=== PATIENT | male | born 1960 | race Caucasian/White ===

== ENCOUNTER → 2019-11-11 14:10 | Outpatient (CLI) | payer OTHER, SELFPAY ==
--- NOTE | ~2019-11-11 | XR_ITS ---
EXAMINATION: XR_RIBSBI_CR DATE: 11/11/2019 14:38 INDICATION: Bilateral rib pain. TECHNIQUE: 3 views of the right ribs and 3 views of the left ribs were obtained. COMPARISON: None. FINDINGS: There is mild scarring at the lung apices. No pleural effusion or pneumothorax. The heart s ize is normal. There are multiple old healed anterior left rib fractures. IMPRESSION: 1. No acute rib fracture. Reviewed, dictated and finalized at location A. IMPRESSION: 1. No acute rib fracture.
== END ==
PROVIDERS: PCP Physician Assistant; Visit Provider Family Medicine
DX: R07.81 Pleurodynia (principal)
CPT/HCPCS: 71110

== ENCOUNTER 2023-10-09 10:08 | Emergency (ER) | payer BC, SELFPAY ==
--- NOTE | ~2023-10-09 | US_ITS ---
EXAMINATION: US venous doppler LE RT DATE: 10/09/2023 11:06 INDICATION: Right lower limb pain and swelling. TECHNIQUE: Grayscale ultrasound images without and with compression and Doppler ultrasound images of the right lower extremity veins were obtained. COMPARISON: None. FINDINGS: The visualized portions of right common femoral vein, profunda (deep) femoral vein, femoral vein, pop liteal vein, peroneal veins, posterior tibial veins, and greater saphenous vein outflow are patent. IMPRESSION: 1. No deep venous thrombosis. Reviewed, dictated and finalized at location A.
--- NOTE | ~2023-10-09 | XR_ITS ---
EXAMINATION: XR femur RT min 2V DATE: 10/09/2023 10:54 INDICATION: Broken hardware. Edema. TECHNIQUE: 2 views of right femur on 4 radiographs were obtained. COMPARISON: None. FINDINGS: There is an old healed fracture of diaphysis of right femur with internal fixation with ivan te and screws. At least four of the screws are fractured. There is mild right hip osteoarthritis and moderate right knee osteoarthritis. No knee joint effusion. There is a loose body in the knee joint. IMPRESSION: 1. Old healed fracture of right femoral diaphysis with internal fixation. 2. Polyarticular osteoarthritis. Reviewed, dictated and finalized at location A.
[2023-10-09 10:09] VITALS: BP 149/86; PULSE 83; RESP 18; TEMP 36.8; O2SAT 98
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
[2023-10-09 10:36] VITALS: BP 122/68; PULSE 69; RESP 15; O2SAT 95
[2023-10-09 10:43] LABS: Basophils Absolute Auto 0.1 K/mm3 (0.0-0.1); Basophils Percent Auto 1.1 % (0.2-1.2); Eosinophils Absolute Auto 0.2 K/mm3 (0-0.3); Hematocrit 46.1 % (42.0-52.0); Hemoglobin 15.5 g/dL (14.0-18.0); Immature Granulocyte Absolute 0.02 K/mm3 (0.00-0.031); Immature Granulocyte Percent A 0.2 % (0-0.5); Lymphocytes Absolute Auto 2.28 K/mm3 (0.9-3.2); Lymphocytes Percent Auto 28.4 % (18.3-44.2); Mean Corpuscular HGB Conc 33.6 g/dl (32-36); Mean Corpuscular Hemoglobin 29.1 pg (26-34); Mean Corpuscular Volume 86.7 fl (80-100); Mean Platelet Volume 10.2 fl (7.4-10.4); Monocytes Absolute Auto 0.6 K/mm3 (0.1-0.6); Monocytes Percent Auto 7.1 % (2.6-8.5); Neutrophils Absolute Auto 4.8 K/mm3 (1.3-6.7); Neutrophils Percent Auto 60.2 % (45.5-73.1); Platelet Count Result 238 k/mm3 (150-375); Red Blood Count 5.32 M/mm3 (4.6-6.20); Red Cell Distribution Width 15.2 % (11.5-14.5)
[2023-10-09 10:53] LABS: Anion Gap 8 mmol/L (4-12); Blood Urea Nitrogen 13 mg/dL (9-20); Calcium 8.6 mg/dL (8.4-10.2); Carbon Dioxide 25 mmol/L (22-30); Chloride 104 mmol/L (98-107); Estimated CRCL calculation 100 ml/min; Estimated Glomerular Filt Rate > 60; Glucose 110 mg/dL (65-110); Potassium 3.6 mmol/L (3.4-5.0); Sodium 137 mmol/L (137-145)
== END 2023-10-09 12:28 | disposition home or self-care (01) ==
PROVIDERS: Emergency Provider Physician Assistant; PCP Physician Assistant
DX: M79.89 Other specified soft tissue disorders (principal); M19.90 Unspecified osteoarthritis, unspecified site
CPT/HCPCS: 36415; 73552; 80048; 85025; 93971; 99284

== ENCOUNTER 2025-02-01 08:55 | Emergency (ER) | payer BC, SELFPAY ==
--- NOTE | ~2025-02-01 | XR_ITS ---
EXAMINATION: XR knee RT 3V DATE: 02/01/2025 10:11 INDICATION: Pain TECHNIQUE: Right knee x-rays were obtained. COMPARISON: None. FINDINGS: Severe osteoarthritic degenerative changes in the medial compartment with milder degenerative changes in the patellofemoral joint and lateral compartment. No displaced fracture dislocation or aggressive bone lesion seen.A corticated 2.3 x 0.8 cm calcification in the suprapatellar region possibly representing sequelae from previous injury or inflammation. Moderate size suprapatellar effusion may be present. Partially visualized fixation hardware in the distal femur diaphysis. IMPRESSION: 1. No acute or aggressive bony process seen. 2. Severe degenerative changes about the right knee with suprapatellar effusion and 2.3 cm chronic appearing calcification as discussed above. Reviewed, dictated and finalized at location A. 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
--- NOTE | 2025-02-01 08:57 | ED_ITS ---
HPI - Extremity Injury (Lower) General Chief Complaint: Extremity Injury, Lower Stated Complaint: RT Knee Pain Source: patient and RN notes reviewed Mode of arrival: ambulatory Limitations: no limitations History of Present Illness HPI Narrative: Patient is a 64-year-old male who presents to the [facility] with complaints of right knee pain. Patient states that he woke up with the pain. He does not recall specific injury but states that he has had chronic knee pain in the right knee with multiple prior surgeries on the knee. He states that he woke up this morning in his knee was swollen. He reports pain to the anterior aspect of the knee. He has full range of motion. He is neurovascularly intact distally. Sensation is intact. He denies any posterior calf or knee pain. Related Data Allergies Allergy/AdvReac Type Severity Reaction Status Date / Time peanut Allergy Hives Verified 02/01/25 09:25 Review of Systems Review of Systems: CONSTITUTIONAL: Denies fever, chills, or sweats. EYES: Denies visual changes, redness, or discharge. ENT: Denies otalgia and sore throat CARDIOVASCULAR: Denies chest pain, palpitations, or edema. RESPIRATORY: Denies cough or dyspnea. GASTROINTESTINAL: Denies abdominal pain, nausea, vomiting, or diarrhea. GENITOURINARY: Denies dysuria or hematuria. SKIN: Denies rash or itching. MUSCULOSKELETAL: Reports right knee pain and swelling. NEUROLOGIC: Denies headache, numbness, or weakness. Pertinent positives per HPI. 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 There is no relevant family history pertinent to the patient complaint. Exam Narrative: GENERAL: This is a well-nourished, well-developed patient, in no apparent dis tress. HEAD: normocephalic, atraumatic. EYES: Sclera clear/white. Vision is grossly intact. EARS: External ears normal. Hearing grossly intact. NOSE: External nose normal with no obvious nasal discharge, nares without redness, no rhinorrhea. THROAT: Mucous membranes moist, posterior pharynx clear. NECK: Neck supple, non-tender without lymphadenopathy, masses or thyromegaly. CARDIOVASCULAR: Regular rate and rhythm without murmurs, gallops, or rubs. RESPIRATORY: Clear to auscultation. Breath sounds equal bilaterally. No wheezes, rales, or rhonchi. GASTROINTESTINAL: Abdomen soft, non-tender, nondistended. Bowel sounds are active. No hepato-splenomegaly, or palpable masses. No guarding. SKIN: warm, intact with no suspicious lesions or rash, good texture and turgor. NEURO: awake, alert, and oriented to person, place and time. There were no obvious focal neurologic abnormalities. EXTREMITIES: Patient is able to bear weight and ambulate with discomfort. No surface of trauma. No overlying erythema or warmth. The R knee is swollen when comparing to the L. Patient is able to do a deep knee bend with symmetry., Fully extended knee, internal and external rotation. Tenderness to anterior aspect of right knee. Distal motor and neurovascular status intact. Course Course Level of Care: Express Care Visit Vital Signs Vital signs: Vital Signs Temperature 97.4 F L 02/01/25 09:17 Pulse Rate 72 02/01/25 09:17 Respiratory Rate 18 02/01/25 09:17 Blood Pressure 150/78 H 02/01/25 09:17 Pulse Oximetry 99 02/01/25 09:17 Oxygen Delivery Room Air 02/01/25 09:17 Temperature 97.4 F L 02/01/25 09:17 Pulse Rate 72 02/01/25 09:17 Respiratory Rate 18 02/01/25 09:17 Blood Pressure 150/78 H 02/01/25 09:17 Pulse Oximetry 99 02/01/25 09:17 Oxygen Delivery Room Air 02/01/25 09:17 Reviewed MDM MDM Narrative Medical decision making narrative: Arthritis is inflammation of one or more of your joints. Pain, swelling, and stiffness are the primary symptoms of arthritis. Minimize activities that aggravate the condition, such as climbing stairs. Switching from high impact activities (like jogging or tennis) to lower impact activities (like swimming or cycling) will put less stress on your knee. Please schedule a follow up visit with your personal physician for further evaluation and treatment within 1-2week OR if your symptoms persist, change or worsen significantly before you can contact your personal physician then please, without delay, go to the emergency department for further evaluation. Differential Diagnosis Differential Diagnosis: right knee sprain, patellar fracture, patellar dislocation, ligament injury Imaging Data Attestation: I personally reviewed and interpreted this imaging study as follows: Radiologist's impression: ITS Impressions Knee X-Ray 02/01/25 10:12 IMPRESSION: 1. No acute or aggressive bony process seen. 2. Severe degenerative changes about the right knee with suprapatellar effusion and 2.3 cm chronic appearing calcification [place] [address] XRay Report Signed Patient: Dank Andino : 1960 MR#: [id number] Age: 64 Acct:[id number] Loc: [facility] ADM Date: 02/01/[address]: Ordering Physician: Cyndi Diane APRN Date of Service: 02/01/25 Procedure(s): XR knee RT 3V Accession Number(s): [id number] cc: Cyndi Diane APRN; Cady Bettencourt APRN~ EXAMINATION: XR knee RT 3V DATE: 02/01/2025 10:11 INDICATION: Pain TECHNIQUE: Right knee x-rays were obtained. COMPARISON: None. FINDINGS: Severe osteoarthritic degenerative changes in the medial compartment with milder degenerative changes in the patellofemoral joint and lateral compartment. No displaced fracture dislocation or aggressive bone lesion seen.A corticated 2.3 x 0.8 cm calcification in the suprapatellar region possibly representing sequelae from previous injury or inflammation. Moderate size suprapatellar effusion may be present. Partially visualized fixation hardware in the distal femur diaphysis. IMPRESSION: 1. No acute or aggressive bony process seen. 2. Severe degenerative changes about the right knee with suprapatellar effusion and 2.3 cm chronic appearing calcification as discussed above. Reviewed, dictated and finalized at location A. [employer] CONSUMER Please be advised this is a medical document. It is intended for [id number] communication. It is written in medical language and may contain unfamiliar abbreviations or verbiage. Medical documents are intended to carry relevant information, facts as evident, and the clinical opinion of the practitioner at the time of the encounter. This report may have been done utilizing a voice recognition system. Attempts have been made to correct errors. However, there may be uncorrected grammatical, spelling, and recognition errors present. The file time of this note does not necessarily represent the time of service. Dictated By: Juan Marques MD 02/01/25 1012 Signed By: <Electronically signed by Juan Marques MD in OV> 02/01/25 1013 Critical Care Time Critical Care Time Critical Care Time: No Discharge Plan Discharge Clinical Impression: Osteoarthritis of right knee Qualifiers: Osteoarthritis type: unspecified Qualified Code(s): M17.11 - Unilateral primary osteoarthritis, right knee Patient Disposition: Home Condition: Stable Instructions: Osteoarthritis (ED), Knee Pain (ED) Additional Instructions: Arthritis is inflammation of one or more of your joints. Pain, swelling, and stiffness are the primary symptoms of arthritis. Minimize activities that aggravate the condition, such as climbing stairs. Switching from high impact activities (like jogging or tennis) to lower impact activities (like swimming or cycling) will put less stress on your knee. Please schedule a follow up visit with your personal physician for further evaluation and treatment within 1-2week OR if your symptoms persist, change or worsen significantly before you can contact your personal physician then please, without delay, go to the emergency department for further evaluation. Patient Language: Kazakh Prescriptions: New meloxicam 15 mg tablet 15 mg PO DAILY Qty: 20 0RF No Action colchicine 0.6 mg tablet 0.6 mg PO .COMPLEX Qty: 30 2RF Rx Instructions: Day 1: take 2 tabs at first sign of flare, followed by 1 tab, 1 hour later. Day 2 and after: take 1 tab 1-2x/day until flare resolves. meloxicam 15 mg tablet 15 mg PO DAILY Qty: 30 11RF Follow-up/Referrals: Nick Morrow MD [Physician, Orthopedics] Cady Bettencourt APRN [Primary Care Provider, Family Practice] Stand Alone Forms: Work/School Release IP Time of Disposition: 10:18
[2025-02-01 09:17] VITALS: BP 150/78; PULSE 72; RESP 18; TEMP 36.3; O2SAT 99
== END 2025-02-01 10:30 | disposition home or self-care (01) ==
PROVIDERS: Emergency Provider Nurse Practitioner; PCP Nurse Practitioner Family
DX: M17.11 Unilateral primary osteoarthritis, right knee (principal); F17.210 Nicotine dependence, cigarettes, uncomplicated
CPT/HCPCS: 73562; 99213; G0463